=== PATIENT | male | born 1990 | race Caucasian/White ===

== ENCOUNTER 2016-07-24 14:51 | Emergency (ER) | payer OTHER ==
[2016-07-24 14:52] VITALS: BMI 22.1
[2016-07-24 14:57] VITALS: BP 145/87; PULSE 110; RESP 16; TEMP 101.2; O2SAT 98
[2016-07-24] MEDS ORDERED: Penicillin G Benzathine 1.2 Mill Unit/2 ml Syr IM ONE ×2 (15:28→15:37)
--- NOTE | 2016-07-24 15:28 | C.PDOC ---
History Of Present Illness 25 yr old male presents to the ER with complaints of sore throat for the past 3 days. Also reports of fever. Denies chest pain, SOB, nausea, vomiting, headache , weakness or numbness. SORE THROAT 3 DAYS. +FEVER +PHARYNGITIS L>R TONSIL W EXUDATE MIN SWELLING. UVULA MIDLINE, NO DROOLING Time Seen by Provider: 07/24/16 15:17 Chief Complaint (Nursing): ENT Problem History Per: Patient History/Exam Limitations: no limitations Onset/Duration Of Symptoms: Days (3) Current Symptoms Are (Timing): Still Present Past Medical History Reviewed: Historical Data, Nursing Documentation, Vital Signs Vital Signs: Last Vital Signs Temp 101.2 F H 07/24/16 14:54 Pulse 110 H 07/24/16 14:54 Resp 16 07/24/16 14:54 BP 145/87 07/24/16 14:54 Pulse Ox 98 07/24/16 15:30 - [facility] Procedures SUTURE OF LIP LACERATION (01/26/14) Family History: States: No Known Family Hx - Social History Hx Tobacco Use: No Hx Alcohol Use: No Hx Substance Use: No - Immunization History Hx Tetanus Toxoid Vaccination: Yes Hx Influenza Vaccination: No Hx Pneumococcal Vaccination: No Review Of Systems Except As Marked, All Systems Reviewed And Found Negative. Constitutional: Positive for: Fever (Subjective ) ENT: Positive for: Throat Pain (Sore throat ) Cardiovascular: Negative for: Chest Pain Respiratory: Negative for: Shortness of Breath Gastrointestinal: Negative for: Nausea, Vomiting Neurological: Negative for: Weakness, Numbness, Headache Physical Exam - Physical Exam Appears: Well, Non-toxic, No Acute Distress Skin: Warm, Dry, No Rash Head: Atraumatic, Normacephalic Throat: Exudate, Other ((+) Pharyngitis L>R tonsil, minimal swelling. Uvula midline. No drooling. ) Neck: Normal, Normal ROM, Supple Chest: Symmetrical, No Tenderness Cardiovascular: Rhythm Regular, No Murmur Respiratory: Normal Breath Sounds, No Rales, No Rhonchi, No Stridor, No Wheezing Extremity: Normal ROM, No Tenderness, No Swelling Neurological/Psych: Oriented x3, Normal Speech, Normal Motor ED Course And Treatment O2 Sat by Pulse Oximetry: 98 Medical Decision Making Medical Decision Making: PLAN: * Tylneol PO * Penicillin IM Disposition Counseled Patient/Family Regarding: Diagnosis, Need For Followup, Rx Given - Disposition Referrals: [facility] [Outside] [facility] [Outside] Disposition: HOME/ ROUTINE Disposition Time: 15:28 Condition: IMPROVED Prescriptions: Dexamethasone 12 mg PO ONCE #2 tab Ibuprofen [Motrin] 600 mg PO Q6 #30 tab Instructions: Strep Throat (ED) Forms: Work Excuse Print Language: AMHARIC - Clinical Impression Clinical Impression: Pharyngitis - Scribe Statement The provider has reviewed the documentation as recorded by the Tomas Zavala Provider Attestation: All medical record entries made by the Tomas were at my direction and personally dictated by me. I have reviewed the chart and agree that the record accurately reflects my personal performance of the history, physical exam, medical decision making, and the department course for this patient. I have also personally directed, reviewed, and agree with the discharge instructions and disposition.
== END 2016-07-24 15:49 | disposition home or self-care (01) ==
LOC: C.ER 14:51
DX: J02.9 Acute pharyngitis, unspecified (principal)
CPT/HCPCS: 96372; 99282; J0561

== ENCOUNTER 2016-07-31 10:15 | Emergency (ER) | payer OTHER ==
[2016-07-31 10:15] VITALS: BMI 22.1
[2016-07-31 10:19] VITALS: BP 128/80; PULSE 91; RESP 20; TEMP 98.2; O2SAT 99
--- NOTE | 2016-07-31 11:59 | C.PDOC ---
History Of Present Illness 25 yr old male presents to the ER with complaints of right sided facial swelling for the past 2 days. Patient reports of similar symptoms in the past about 1 year ago but cannot recall of any medical procedure was done to alleviate the symptoms. Patient denies foul taste in mouth, trauma, dental procedure, fever, chills, ear pain, nausea, vomiting, neck pain, weakness or numbness. Time Seen by Provider: 07/31/16 10:35 Chief Complaint (Nursing): Abnormal Skin Integrity History Per: Patient History/Exam Limitations: no limitations Onset/Duration Of Symptoms: Days (2 days) Past Medical History Reviewed: Historical Data, Nursing Documentation, Vital Signs Vital Signs: Last Vital Signs Temp 98.2 F 07/31/16 10:18 Pulse 91 H 07/31/16 10:18 Resp 20 07/31/16 10:18 BP 128/80 07/31/16 10:18 Pulse Ox 99 07/31/16 12:02 - [facility] Procedures SUTURE OF LIP LACERATION (01/26/14) Family History: States: No Known Family Hx - Social History Hx Tobacco Use: No Hx Alcohol Use: No Hx Substance Use: No - Immunization History Hx Tetanus Toxoid Vaccination: Yes Hx Influenza Vaccination: No Hx Pneumococcal Vaccination: No Review Of Systems Except As Marked, All Systems Reviewed And Found Negative. Constitutional: Positive for: Other ((+) Right sided facial swelling ). Negative for: Fever, Chills ENT: Negative for: Ear Pain Gastrointestinal: Negative for: Nausea, Vomiting Musculoskeletal: Negative for: Neck Pain Neurological: Negative for: Weakness, Numbness Physical Exam - Physical Exam Appears: Well, Non-toxic, No Acute Distress Skin: Warm, Dry Head: Normacephalic, Other ((+) Mild swelling over the right TMJ. No fluctuance felt. ) Oral Mucosa: Moist Tongue: Normal Appearing, No Swelling, No Lesions Lips: Normal Appearing, No Swelling Teeth: Normal Dentition, No Caries, No Tender To Palpation, No Loose Gingiva: Normal Appearing, No Erythema, No Ulceration Throat: Normal, No Erythema, No Exudate, No Drooling Neck: Normal, Normal ROM, Supple Chest: Symmetrical, No Tenderness Cardiovascular: Rhythm Regular, No Murmur Respiratory: Normal Breath Sounds, No Rales, No Rhonchi, No Stridor, No Wheezing Extremity: Normal ROM, No Swelling Neurological/Psych: Oriented x3, Normal Speech, Normal Motor ED Course And Treatment O2 Sat by Pulse Oximetry: 99 Medical Decision Making Medical Decision Making: PLAN: * Motrin PO Disposition - Disposition Referrals: [facility] [Outside] [facility] [Outside] Disposition: HOME/ ROUTINE Disposition Time: 11:05 Condition: GOOD Additional Instructions: Thank you for letting us take care of you today. Your provider was Dr. Sandhu. You were treated for facial swelling. The emergency medical care you received today was directed at your acute symptoms. If you were prescribed any medication, please fill it and take as directed. It may take several days for your symptoms to resolve. Return to the Emergency Department if your symptoms worsen, do not improve, or if you have any other problems. Please contact your doctor or call one of the physicians/clinics you have been referred to that are listed on the Patient Visit Information form that is included in your discharge packet. Bring any paperwork you were given at discharge with you along with any medications you are taking to your follow up visit. Our treatment cannot replace ongoing medical care by a primary care provider (PCP) outside of the emergency department. Thank you for allowing the [facility] team to be part of your care today. Follow up with the clinic in 3-4 days for re-evaluation. Return to the emergency room if you have any concerns. Prescriptions: Amoxicillin/Clavulanate [Augmentin 875 MG-125 MG] 1 tab PO BID #14 tab Ibuprofen [Motrin] 600 mg PO Q6 PRN #20 tab PRN Reason: Pain, Moderate (4-7) Forms: Gen Discharge Inst Greenlandic Print Language: LUXEMBOURGISH - Clinical Impression Clinical Impression: Facial swelling - Scribe Statement The provider has reviewed the documentation as recorded by the Adenikeibe Ana Laura Zavala Provider Attestation: All medical record entries made by the Adenikeibisabella were at my direction and personally dictated by me. I have reviewed the chart and agree that the record accurately reflects my personal performance of the history, physical exam, medical decision making, and the department course for this patient. I have also personally directed, reviewed, and agree with the discharge instructions and disposition.
== END 2016-07-31 11:15 | disposition home or self-care (01) ==
LOC: C.ER 10:15
DX: R22.0 Localized swelling, mass and lump, head (principal)